=== PATIENT | female | born 1965 | race African-American/Black ===

== ENCOUNTER 2019-04-30 10:41 | Observation (INO) ==
[2019-04-30 11:17] LABS: Basophils % 0.4 % (0.0-0.8); Eosinophils # 0.1 10*3/uL (0.0-0.87); Eosinophils % 1.8 % (0.00-10.9); Hematocrit 39.7 VOL% (35.7-47.0); Immature Granulocytes % 0.4 %; Immature Granulocytes Absolute 0.02 #; Lymphocytes # 1.9 10*3/uL (1.4-4.0); Lymphocytes % 39.6 % (21.3-54.2); Mean Corpuscular HGB Conc 30.2 GM/DL (32-36); Mean Corpuscular Volume 75.5 FL (87-102); Monocytes % 4.7 % (1.7-12.7); Neutrophils % 53.1 % (38.7-73.9); Platelet Count 243 T/CUMM (130-400); Red Blood Count 5.26 MC/CUMM (3.8-5.5); Red Cell Distribution Width 15.5 % (9.3-17.3); White Blood Count 4.9 T/CUMM (4-12)
[2019-04-30 11:26] LABS: INR 0.9; PT Patient Result 10.1 SECS
[2019-04-30 11:30] LABS: Alanine Aminotransferase 20 U/L (13-56); Albumin 3.8 G/DL (3.4-5.0); Alkaline Phosphatase 130 U/L (45-117); Aspartate Amino Transferase 19 U/L (0-37); Bilirubin,Total < 0.39 MG/DL (0.2-1.0); Blood Urea Nitrogen 13 MG/DL (7-18); Glucose 106 MG/DL (74-106); Osmolality,Calculated 282.1 MOS/KG (273-304); Troponin I < 0.015 NG/ML (0.00-0.045)
[2019-04-30] MEDS ORDERED: ASPIRIN 325 MG TABLET PO STA (11:45)
[2019-04-30] MEDS ORDERED: BISACODYL 5 MG TABLET PO PRN (13:29)
[2019-04-30] MEDS ORDERED: diphenhydrAMINE CAP 25 MG CAPSULE PO PRN (13:29)
[2019-04-30] MEDS ORDERED: DOCUSATE SODIUM 100 MG CAPSULE PO PRN (13:29)
[2019-04-30] MEDS ORDERED: ACETAMINOPHEN 325 MG TABLET PO PRN (13:29)
[2019-04-30] MEDS ORDERED: ONDANSETRON 4 MG/2 ML VIAL IV PRN (13:29)
[2019-04-30] MEDS ORDERED: ENOXAPARIN 40 MG/0.4 ML SYRINGE SUBCUT SCH ×2 (14:00→21:00)
[2019-04-30 14:15] LABS: Risk Ratio 3.82; Thyroid Stimulating Hormone 0.937 uIU/ml (0.358-3.74)
[2019-04-30 14:17] LABS: Apearance,Urine CLEAR (Clear); Bilirubin,Urine Negative (Negative); Blood, Urine Small mg/dL (Negative); Glucose,Urine (UA) Negative (Negative); Ketones,Urine Negative (Negative); Mucus,Urine Occasional /LPF (Occasional); Nitrite,Urine Negative (Negative); Protein,Urine Negative; RBC,Urine 2 /HPF (0-4); Urine Color Yellow (Yellow); Urine Specific Gravity 1.013 (1.001-1.035); Urine Urobilinogen < 2.0 EU/DL (0.2-1.0); WBC,Urine <1 /HPF (0-6)
[2019-04-30 14:21] LABS: Barbiturates Screen,Urine Negative (Negative); Benzodiazepines Screen,Urine Negative (Negative); Cannabinoid Screen,Urine Negative (Negative); Opiate Screen,Urine Negative (Negative); Phencyclidine Screen,Urine Negative (Negative)
[2019-05-01 05:30] LABS: % Iron Saturation 18.3 % (18-50); Ferritin 162.4 ng/ml (8-252)
[2019-05-01] MEDS ORDERED: PANTOPRAZOLE 40 MG TABLET PO SCH (09:00)
[2019-05-01 12:14] VITALS: BP 157/66
== END 2019-05-01 16:02 | disposition home or self-care (01) ==
LOC: EDBD → EDUNIT# → N.ED 10:41 → INTOOBSV 13:27 → SUATTDRO 13:27 → N.EDINP 13:27 → N.4E 15:08
PROVIDERS: ADMIT Internal Medicine; ATTEND Internal Medicine